=== PATIENT | female | born 1980 | race Two or more races ===

== ENCOUNTER 2022-03-22 13:13 | Emergency (ER) | payer MEDICARE, MEDICAID, OTHER | END 2022-03-22 14:09 | disposition left against medical advice (07) | LOC: ER 13:13 | DX: Z04.1 Encounter for examination and observation following transport accident (principal); Z53.21 Procedure and treatment not carried out due to patient leaving prior to being seen by health care provider; V89.2XXA Person injured in unspecified motor-vehicle accident, traffic, initial encounter; Y93.89 Activity, other specified; Y92.89 Other specified places as the place of occurrence of the external cause; Y99.8 Other external cause status ==

== ENCOUNTER 2023-05-20 18:33 | Emergency (ER) | payer MEDICARE, MEDICAID ==
[~2023-05-20] VITALS: Ht 167.6 cm; Wt 66.7 kg
[~2023-05-20 18:33] MED LIST: ACET-1080 PO; AZIT-81 PO; PROM1SOL4 PO
[2023-05-20 19:34] LABS: Basophils # (auto) 0.1 10 ^3/uL (0-0.2); Eosinophils # (auto) 0.1 10 ^3/uL (0-0.8); Eosinophils % (auto) 1.5 % (0.0-7.0); Hemoglobin 10.7 g/dL (12.2-16.2); Lymphocytes # (auto) 2.5 10 ^3/uL (0.4-5.4); Lymphocytes % (auto) 40.7 % (10.0-50.0); Mean Corpuscular Hemoglobin 23.9 pg (28.0-32.0); Mean Corpuscular Hgb Conc. 32.2 g/dL (32.0-36.0); Mean Corpuscular Volume 74.1 fL (80.0-100.0); Monocytes # (auto) 0.4 10 ^3/uL (0-1.3); Monocytes % (auto) 6.4 % (0.0-12.0); Neutrophils % (auto) 49.4 % (37.0-80.0); Red Blood Cells 4.46 10^6/uL (4.0-5.20); Red Cell Distribution Width 19.2 % (11.8-14.3); White Blood Cell 6.2 10^3/uL (4.4-10.8)
[2023-05-20 19:49] LABS: Albumin 4.6 g/dL (3.2-4.8); Alkaline Phosphatase 70 U/L (46-116); Aspartate Aminotransferase < 8 U/L (13-40); BUN/Creatinine Ratio 11.9 (10.0-20.0); Blood Urea Nitrogen 10 mg/dL (9-23); Calcium 9.3 mg/dL (8.7-10.4); Chloride 108 mmol/L (98-107); Glucose 104 mg/dL (74-106); Lipase 35 U/L (12-53); Potassium 3.9 mmol/L (3.5-5.1); Sodium 140 mmol/L (136-145)
[2023-05-20 19:50] LABS: Bilirubin, Total 0.2 mg/dL (0.2-1.0); Total Protein 7.5 g/dL (5.7-8.2)
[2023-05-20] MEDS ORDERED: IODIXANOL 320MG/ML 100ML BTL IV ONE (19:59)
[2023-05-20 20:12] LABS: Urine Bacteria NONE SEEN /hpf (None Seen); Urine Blood 3+ /uL (Negative); Urine Clarity Clear (Clear); Urine Color Yellow (Yellow); Urine Hyaline Cast FEW /lpf (0 - 2); Urine Mucus FEW (None Seen); Urine Protein, UAD TRACE (Negative); Urine Specific Gravity 1.025 (1.001-1.035); Urine Urobilinogen Normal (Negative); Urine WBC 3 /hpf (0 - 5); Urine pH 5.5 (5.0-8.0)
[2023-05-20 20:17] LABS: Alanine Aminotransferase < 9 U/L (7-40)
[2023-05-20 20:21] LABS: Amphetamine Screen, Urine Neg (NEGATIVE); Barbiturate Scree,Urine Neg (NEGATIVE); Benzodiazephine Screen, Urine Neg (NEGATIVE); Cocaine Screen, Urine Neg (NEGATIVE); Opiate Scree,Urine Neg (NEGATIVE)
[2023-05-20 20:22] LABS: Cannabinoid Screen, Urine Neg (NEGATIVE); Phencyclidine Screen, Urine Neg (NEGATIVE)
[2023-05-20 23:15] VITALS: BP 146/82; PULSE 82; RESP 18; TEMP 98.9; O2SAT 99
== END 2023-05-20 23:28 | disposition home or self-care (01) ==
LOC: ER 18:33
DX: K59.00 Constipation, unspecified (principal); R10.2 Pelvic and perineal pain; R10.33 Periumbilical pain; D64.9 Anemia, unspecified; Z79.1 Long term (current) use of non-steroidal anti-inflammatories (NSAID); Z79.899 Other long term (current) drug therapy
CPT/HCPCS: 36415; 71045; 74177; 80053; 80307; 81001; 81025; 83605; 83690; 84484; 84702; 85025; 99285; Q9967

== ENCOUNTER 2023-11-17 14:29 | Emergency (ER) | payer MEDICARE, MEDICAID ==
[~2023-11-17] VITALS: Ht 167.6 cm; Wt 67.7 kg
[2023-11-17 15:42] LABS: Urine Bacteria NONE SEEN /hpf (None Seen); Urine Blood 3+ /uL (Negative); Urine Clarity Clear (Clear); Urine Color Yellow (Yellow); Urine Mucus FEW (None Seen); Urine Protein, UAD 1+ (Negative); Urine Specific Gravity 1.019 (1.001-1.035); Urine Urobilinogen Normal (Negative); Urine WBC 41 /hpf (0 - 5); Urine pH 5.5 (5.0-8.0)
[2023-11-17 16:45] LABS: Basophils # (auto) 0 10 ^3/uL (0-0.2); Basophils % (auto) 0.4 % (0.0-2.0); Eosinophils # (auto) 0 10 ^3/uL (0-0.8); Hematocrit 40.2 % (36.0-46.0); Hemoglobin 13.1 g/dL (12.2-16.2); Lymphocytes # (auto) 1.1 10 ^3/uL (0.4-5.4); Lymphocytes % (auto) 13.2 % (10.0-50.0); Mean Corpuscular Hemoglobin 27.1 pg (28.0-32.0); Mean Corpuscular Hgb Conc. 32.5 g/dL (32.0-36.0); Mean Corpuscular Volume 83.4 fL (80.0-100.0); Monocytes # (auto) 0.3 10 ^3/uL (0-1.3); Monocytes % (auto) 3.2 % (0.0-12.0); Neutrophils # (auto) 6.9 10 ^3/uL (1.6-8.6); Neutrophils % (auto) 83.2 % (37.0-80.0); Red Blood Cells 4.82 10^6/uL (4.0-5.20); Red Cell Distribution Width 15.7 % (11.8-14.3); White Blood Cell 8.3 10^3/uL (4.4-10.8)
[2023-11-17 17:09] LABS: Alanine Aminotransferase 12 U/L (7-40); Albumin 4.7 g/dL (3.2-4.8); Alkaline Phosphatase 73 U/L (46-116); Anion Gap 6 (5-15); Aspartate Aminotransferase 15 U/L (13-40); BUN/Creatinine Ratio 10.3 (10.0-20.0); Bilirubin, Total 0.5 mg/dL (0.2-1.0); Blood Urea Nitrogen 10 mg/dL (9-23); Carbon Dioxide 25 mmol/L (20-30); Chloride 109 mmol/L (98-107); Glucose 108 mg/dL (74-106); Lipase 25 U/L (12-53); Potassium 4.5 mmol/L (3.5-5.1); Sodium 140 mmol/L (136-145)
[2023-11-17] MEDS ORDERED: ZOFR4T PO (19:03)
[2023-11-17] MEDS ORDERED: CEPH500C PO (19:03)
[2023-11-17] MEDS ORDERED: HYDR-4902 PO (19:03)
[2023-11-17 19:47] VITALS: TEMP 98.2
[2023-11-17] MEDS: SODIUM CHLORIDE 0.9% 1,000 ML IV ONE (19:55)
[2023-11-17 19:59] VITALS: PULSE 72; RESP 16; O2SAT 96
[2023-11-17] MEDS: ONDANSETRON HCL 4 MG/2 ML VIAL IV ONE (19:59)
[2023-11-17] MEDS: FAMOTIDINE (10MG/ML) 2ML VL IV ONE (19:59)
[2023-11-17] MEDS: MORPHINE SULFATE 4 MG/ML SYR/VIAL IV ONE (19:59)
[2023-11-17 21:29] VITALS: BP 122/90; PULSE 66; RESP 16; O2SAT 94
== END 2023-11-17 21:31 | disposition home or self-care (01) ==
LOC: ER 14:29
DX: N39.0 Urinary tract infection, site not specified (principal); R51.9 Headache, unspecified; K02.9 Dental caries, unspecified; R11.2 Nausea with vomiting, unspecified; Z32.02 Encounter for pregnancy test, result negative
CPT/HCPCS: 36415; 74176; 80053; 81001; 81025; 83690; 85025; 96361; 96374; 96375; 99285; J2270; J2405; J3490; J7030

== ENCOUNTER 2024-01-06 14:25 | Emergency (ER) | payer MEDICARE, MEDICAID ==
[~2024-01-06] VITALS: Ht 167.6 cm; Wt 66.9 kg
[~2024-01-06 14:25] MED LIST changes: +AZIT-185 PO; -AZIT-81 PO; +CEPH500C PO; +HYDR-4902 PO; +ZOFR4T PO
[2024-01-06] MEDS ORDERED: IBUP-1456 PO (18:39)
[2024-01-06 18:53] VITALS: BP 120/75; PULSE 75; RESP 12; TEMP 98; O2SAT 100
== END 2024-01-06 19:00 | disposition home or self-care (01) ==
LOC: ER 14:25
DX: S63.501A Unspecified sprain of right wrist, initial encounter (principal); W18.09XA Striking against other object with subsequent fall, initial encounter; Y93.89 Activity, other specified; Y92.89 Other specified places as the place of occurrence of the external cause; Y99.8 Other external cause status
CPT/HCPCS: 29125; 73110

== ENCOUNTER 2024-01-21 18:44 | Emergency (ER) | payer MEDICARE, MEDICAID ==
[~2024-01-21] VITALS: Ht 167.6 cm; Wt 63.6 kg
[~2024-01-21 18:44] MED LIST changes: +IBUP-1456 PO
[2024-01-21 23:56] VITALS: BP 99/69; PULSE 78; RESP 18; TEMP 97.8
[2024-01-22] MEDS ORDERED: ACET500T58 PO (02:40)
[2024-01-22] MEDS ORDERED: AMOX875T4 PO (02:40)
[2024-01-22 03:00] VITALS: O2SAT 100
[2024-01-22] MEDS: TETANUS-DIPTH-ACEL PERTUSSIS 0.5ML SYR Tdap IM ONE (03:57)
[2024-01-22] MEDS: cefTRIAXone SOD 1,000 MG VL IM ONE (03:58)
== END 2024-01-22 04:33 | disposition home or self-care (01) ==
LOC: ER 18:44
DX: S91.351A Open bite, right foot, initial encounter (principal); Z86.2 Personal history of diseases of the blood and blood-forming organs and certain disorders involving the immune mechanism; Z79.2 Long term (current) use of antibiotics; Z79.1 Long term (current) use of non-steroidal anti-inflammatories (NSAID); Z79.899 Other long term (current) drug therapy; W54.0XXA Bitten by dog, initial encounter; Y93.89 Activity, other specified; Y92.89 Other specified places as the place of occurrence of the external cause; Y99.8 Other external cause status
CPT/HCPCS: 90471; 90715; 96372; 99284; J0696

== ENCOUNTER 2024-12-25 22:59 | Emergency (ER) | payer MEDICARE, MEDICAID ==
[~2024-12-25] VITALS: Ht 170.2 cm; Wt 68.8 kg
[~2024-12-25 22:59] MED LIST changes: +ACET500T58 PO; +AMOX875T4 PO
[2024-12-25 23:10] VITALS: BP 119/86; TEMP 98.7
[2024-12-25] MEDS ORDERED: AUG875T PO (23:15)
[2024-12-25] MEDS ORDERED: METH4PAK PO (23:15)
--- NOTE | 2024-12-25 23:15 | ED.PDOC ---
Eye-HPI HPI Comments 44-year-old female presents to the ED chief complaint sore throat and bite lateral ear pain. Symptoms started a proximally 48 hours started with the right ear left ear now throat she notes right ear is worse than the left. States has been taking [id number] medications with little relief. Denies of the uterus does report chills fatigue notes no cough or nasal drainage. Denies chest pain, difficulty breathing, shortness of breath, nausea, vomiting or diarrhea notes no recent travel or ill contacts. Chief Complaint: Earache Time Seen by MD: 23:03 Primary Care Provider: CARLOS Reviewed Notes: Nurses Notes, Medications, Allergies Allergies: Coded Allergies: NO KNOWN ALLERGIES (Unverified , 09/15/22) Home Meds Active Scripts Acetaminophen (Acetaminophen) 500 Mg Tab, 500 MG PO Q4HR PRN, #30 TAB 0 Refills Prov:SANTIAGO FIELDS 01/22/24 Amoxicillin & Pot Clavulanate (Amoxicillin/Potassium Cla) 875 Mg Tab, 1 TAB PO BID for 7 Days, #14 TAB 0 Refills Prov:SANTIAGO FIELDS 01/22/24 Ibuprofen (Ibuprofen) 800 Mg Tab, 1 TAB PO TID PRN, #30 TAB 0 Refills Prov:SANTIAGO FIELDS 01/06/24 Hydrocodone-Acetaminophen (Hydrocodone Bitartrate/AC 5-325 mg) 1 Tab Tab, 1 TAB PO Q6HPRN PRN, #8 TAB as needed for nuasea vomiting Prov:PETRA LR Q DIRECTOR OF EDUCATION AND TRAINING 11/17/23 Ondansetron Odt 4MG Tab (ZOFRAN PO) 4 Mg Tb, 1 TAB PO Q8HPRN PRN, #10 TAB As needed for nausea vomitingODT TAB-DISSOLVE IN MOUTH, THEN SWALLOW Prov:PETRA LR Q DIRECTOR OF EDUCATION AND TRAINING 11/17/23 Cephalexin Monohydrate (Cephalexin) 500 Mg Cap, 1 CAP PO QID for 10 Days, #40 CAP Prov:AMITA LRA Q DIRECTOR OF EDUCATION AND TRAINING 24 Acetaminophen (Tylenol 8 Hour Arthritis) 650 Mg Tab, 650 MG PO TID, #20 TAB Prov:DOTTY DUBON 09/15/22 Promethazine-Dm (Promethazine Dm 6.25-15 mg/5Ml) 1 Nuria Nuria, 5 ML PO TID, #150 ML Prov:DOTTY DUBON 09/15/22 Azithromycin (ZITHROMAX TABLET) 250 Mg Tb, 250 MG PO DAILY, #6 TAB Prov:DOTTY DUBON 09/15/22 Past Medical History PAST MEDICAL HISTORY: Anemia Surgical History: Denies all surgeries SENIOR SALES DIRECTOR History: No Pertinent SENIOR SALES DIRECTOR History Family History Family History: Unknown Social History Smoker: Non-Smoker Alcohol: Denies ETOH Use Drugs: Denies Drug Use Lives In: Home Constitutional: reports: chills, fatigue; denies: diaphoresis, fever, malaise, sweats, weakness, others EENTM: reports: ear pain, throat pain; denies: blurred vision, double vision, ear bleeding, ear discharge, ear drainage, ear ringing, eye pain, eye redness, hearing loss, mouth pain, mouth swelling, nasal discharge, nose bleeding, nose congestion, nose pain, photophobia, tearing, throat swelling, voice changes, others Respiratory: denies: cough, hemoptysis, orthopnea, SOB at rest, shortness of breath, SOB with excertion, stridor, wheezing, others Cardiovascular: denies: chest pain, dizzy spells, diaphoresis, Dyspnea on exertion, edema, irregular heart beat, left arm pain, lightheadedness, palpitations, PND, syncope, others Gastrointestinal: denies: abdomen distended, abdominal pain, blood streaked bowels, constipated, diarrhea, dysphagia, difficulty swallowing, hematemesis, melena, nausea, poor appetite, poor fluid intake, rectal bleeding, rectal pain, vomiting, others Genitourinary: denies: abnormal vagina bleeding, burning, dyspareunia, dysuria, flank pain, frequency, hematuria, incontinence, pain, , vagina discharge, urgency, others Neurological: denies: dizziness, fainting, headache, left sided numbness, left sided weakness, numbness, paresthesia, pre-existing deficit, right sided numbness, right sided weakness, seizure, speech problems, tingling, tremors, weakness, others Musculoskeletal: denies: back pain, gout, joint pain, joint swelling, muscle pain, muscle stiffness, neck pain, others Integumetry: denies: bruises, change in color, change in hair/nails, dryness, laceration, lesions, lumps, rash, wounds, others Allergic/Immunocompromised: denies: Difficulty Healing, Frequent Infections, Hives, Itching, others Hematologic/Lymphatic: denies: anemia, blood clots, easy bleeding, easy bruising, swollen glands, others Endocrine: denies: excessive hunger, excessive sweating, excessive thirst, excessive urination, flushing, intolerance to cold, intolerance to heat, unexplained weight gain, unexplained weight loss, others Psychiatric: denies: anxiety, bipolar disorder, depression, hopeless, panic disorder, schizophrenia, sleepless, suicidal, others Physical Exam General Appearance: No Apparent Distress, Normal HEENT: Pharyngeal Erythema, TMs Normal, Other (Tonsils grade 3 without exudate) Neck: Full Range of Motion, Non-Tender Respiratory: Chest Non-Tender, Lungs Clear, No Accessory Muscle Use, No Respiratory Distress, Normal Breath Sounds Cardiovascular: No Edema, No JVD, No Murmur, No Gallop, Normal Peripheral Pulses, Regular Rate/Rhythm Breast Exam: Deferred Gastrointestinal: No Organomegaly, Non Tender, No Pulsatile Mass, Normal Bowel Sounds, Soft Genitalia: Deferred Pelvic: Deferred Rectal: Deferred Extremities: Normal capillary refill, Normal inspection, Normal range of motion, Non-tender, No pedal edema Musculoskeletal : Apperance: Normal Neurologic: Alert, clinical assistant II-XII nml as Tested, No Motor Deficits, Normal Affect, Normal Mood, No Sensory Deficits Cerebellar Function: Normal Reflexes: Normal Skin: Dry, Normal Color, Warm Lymphatic: No Adenopathy Was a procedure done? Was a procedure done?: No EENT DIFF Eye: N/A Ear: Foreign Body, Otitis Externa, Barotrauma, Otitis Media, Perforation, Dental, Pharyngitis Sore Throat: Peritonsillar Abscess, Peritonsillar Cellulitis, URI X-Ray, Labs, Meds, VS Comment Likely bacterial acute tonsillitis we will trial and script Augmentin and Medrol Dosepak patient's pharmacy on file. Advised to rest increase p.o. fluids with electrolytes. Take medications as prescribed side effects discussed. Follow up with your PCP in 2-3 days as necessary. ER return precautions given patient indicates understanding agrees with discharge plan of care Time of 1ST Reevaluation: 23:13 Reevaluation 1ST: Unchanged Patient Education/Counseling: Diagnosis, Treatment, Prognosis, Need For Follow Up Family Education/Counseling: No Family Present Departure 1 Departure Time of Disposition: 23:14 Impression: Primary Impression: Acute tonsillitis Disposition: HOME / SELF CARE / HOMELESS Condition: Stable e-Prescriptions Methylprednisolone (Medrol Dosepak) 4 Mg Aaron 4 MG PO UD for 6 Days, #21 TAB UAD Prov: LUIS UMANZOR 12/25/24 Amoxicillin & Pot Clavulanate (AUGMENTIN TABLET) 875 Mg Tb 875 MG PO BID for 7 Days, #14 TAB Prov: LUIS UMANZOR 12/25/24 Discharged With: Self Critical Care Note Critical Care Time?: No Stability Stability form required: LUIS Senior Dec 25, 2024 23:15
[2024-12-25 23:42] VITALS: PULSE 85; RESP 18; O2SAT 100
== END 2024-12-25 23:45 | disposition home or self-care (01) ==
LOC: ER 22:59
DX: J03.90 Acute tonsillitis, unspecified (principal)

== ENCOUNTER 2025-02-11 19:13 | Emergency (ER) | payer OTHER, MEDICAID ==
[~2025-02-11] VITALS: Ht 170.2 cm; Wt 69.1 kg
--- NOTE | 2025-02-11 20:08 | ED.PDOC ---
History of Present Illness HPI Comments 44-year-old female presents to ER with complaints of flu-like symptoms x2 days. Patient reports he has been experiencing dry cough, congestion and intermittent frontal headache x2 days. She rates her current frontal headache pain a 5/10 and denies use of medications for current symptoms. Patient presents to ER ambulatory on arrival, with steady gait, in no distress. Denies fever, shortness of breath, chest pain, hemoptysis, sore throat, dizziness or any further symptoms/complaints Time Seen by MD: 19:16 Primary Care Provider: UNKNOWN Reviewed Notes: Nurses Notes, Medications, Allergies Information Source: Patient Mode of Arrival: Ambulatory Past Medical History PAST MEDICAL HISTORY: Anemia Surgical History: Denies all surgeries ANIMATION DIRECTOR History: No Pertinent ANIMATION DIRECTOR History Family History Family History: Unknown Social History Smoker: Non-Smoker Alcohol: Denies ETOH Use Drugs: Denies Drug Use Lives In: Home Constitutional: No Symptoms Reported EENTM: See HPI Respiratory: See HPI Cardiovascular: No Symptoms Reported Gastrointestinal: No Symptoms Reported Genitourinary: No Symptoms Reported Neurological: See HPI Musculoskeletal: No Symptoms Reported Integumentary: No Symptoms Reported Allergic/Immunocompromised: others (DENIES) Hematologic/Lymphatic: No Symptoms Reported Endocrine: No Symptoms Reported Psychiatric: No symptoms Reported Physical Exam General Appearance: No Apparent Distress HEENT: Normal ENT Inspection, PERRL/EOMI, Pharynx Normal, TMs Normal Neck: Full Range of Motion, Non-Tender, Normal Respiratory: Chest Non-Tender, Lungs Clear, No Accessory Muscle Use, No Respiratory Distress, Normal Breath Sounds Cardiovascular: No Murmur, No Gallop, Regular Rate/Rhythm Breast Exam: Deferred Gastrointestinal: NOT DONE Genitalia: Deferred Pelvic: Deferred Rectal: Deferred Extremities: Normal capillary refill, Normal range of motion Neurologic: Alert, wrist liner II-XII nml as Tested, No Motor Deficits, Normal Affect, Normal Mood, No Sensory Deficits Cerebellar Function: Normal Reflexes: Normal Skin: Dry, Normal Color, Warm Lymphatic: No Adenopathy Was a procedure done? Was a procedure done?: No Sedation Sedation?: No Fever Differential Dx Differential Diagnosis: Pneumonia, Sepsis, Pharyngitis, Other (COVID-19, INFLUENZA) X-Ray, Labs, Meds, VS Vital Signs Date Time Temp Pulse Resp B/P (MAP) Pulse Ox O2 Delivery O2 Flow Rate FiO2 02/11/25 20:15 97.9 83 16 125/79 (94) 100 97.9 02/11/25 20:15 83 16 100 Room Air 02/11/25 19:59 97.9 83 16 125/79 (94) 100 97.9 Lab Test 02/11/25 20:00 Range/Units Influenza Type A Antigen Negative Negative Influenza Type B Antigen Negative Negative SARS-CoV-2 Antigen (Rapid) Negative NEGATIVE Swab results reviewed - negative Patient in no distress during ER visit/prior to discharge Advised to drink plenty of fluids Advised to follow up with PCP in 1-2 days Patient verbalized understanding and agreeable with current plan of care Advised to return to ER immediately if symptoms worsen Time of 1ST Reevaluation: 20:02 Reevaluation 1ST: N/A Patient Education/Counseling: Diagnosis, Treatment, Prognosis, Need For Follow Up Family Education/Counseling: No Family Present Departure 1 Departure Time of Disposition: 20:32 Impression: Primary Impression: Upper respiratory infection Qualified Codes: J06.9 - Acute upper respiratory infection, unspecified Disposition: 01 HOME / SELF CARE / HOMELESS Condition: Stable e-Prescriptions Acetaminophen (Acetaminophen) 500 Mg Tab 500 MG PO Q4HPRN, #30 TAB 0 Refills Prov: SANTIAGO FIELDS 02/11/25 Azithromycin (Azithromycin) 250 Mg Tab 250 MG PO DAILY MDD 500 for 5 Days, #6 TAB 0 Refills 2 TABLETS ORALLY ON DAY ONE, THEN 1 TABLET ORALLY DAILY FOR 4 DAYS Prov: SANTIAGO FIELDS 02/11/25 Discharged With: Self Critical Care Note Critical Care Time?: No Stability Stability form required: No Heart Score Heart Score: Heart Score Response (Comments) Value History N/A 0 EKG N/A 0 Age N/A 0 Risk Factors N/A 0 Troponin N/A 0 Total 0 SANTIAGO FIELDS February 11, 2025 20:08
[2025-02-11 20:15] VITALS: BP 125/79; PULSE 83; RESP 16; TEMP 97.9; O2SAT 100
[2025-02-11] MEDS ORDERED: ACET500T58 PO (20:33)
[2025-02-11] MEDS ORDERED: AZIT-43 PO (20:33)
[2025-02-11 20:49] LABS: COVID19 ANTIGEN SOFIA FIA NEGATIVE (NEGATIVE); Rapid Influenza A Negative (Negative); Rapid Influenza B Negative (Negative)
== END 2025-02-11 21:00 | disposition home or self-care (01) ==
LOC: ER 19:13
DX: J06.9 Acute upper respiratory infection, unspecified (principal); D64.9 Anemia, unspecified; Z20.822 Contact with and (suspected) exposure to COVID-19
CPT/HCPCS: 36415; 87426; 87804

== ENCOUNTER 2025-03-06 14:09 | Emergency (ER) | payer OTHER, MEDICAID ==
[~2025-03-06 14:09] MED LIST changes: +AZIT-43 PO
[2025-03-06 18:10] LABS: Urine Bacteria None Seen /hpf (None Seen)
[2025-03-06 18:26] LABS: Urine Blood Negative /uL (Negative); Urine Clarity Clear (Clear); Urine Color Light-Yellow (Yellow); Urine Mucus FEW (None Seen); Urine Protein, UAD Negative (Negative); Urine Specific Gravity 1.015 (1.001-1.035); Urine Squamous Epithelial Cell FEW /hpf (<5); Urine Urobilinogen Normal (Negative); Urine WBC 3 /HPF (0-5); Urine pH 5.5 (5.0-9.0)
[2025-03-06 18:46] LABS: Rapid Strep A Screen-Throat Negative
[2025-03-06] MEDS ORDERED: LORA-1130 PO ×3 (19:32→20:23)
[2025-03-06] MEDS ORDERED: MOME50SP11 ×2 (19:32→20:23)
--- NOTE | 2025-03-06 19:33 | ED.PDOC ---
History of Present Illness HPI Comments pt has been having recurrent sore throat, runny nose, post nasal discharge over weeks.no fever, no sob Chief Complaint: Flu like Time Seen by MD: 14:42 Primary Care Provider: UNKNOWN Allergies: Coded Allergies: NO KNOWN ALLERGIES (Unverified , 09/15/22) Home Meds Active Scripts Acetaminophen (Acetaminophen) 500 Mg Tab, 500 MG PO Q4HPRN, #30 TAB 0 Refills Prov:SANTIAGO FIELDS 02/11/25 Azithromycin (Azithromycin) 250 Mg Tab, 250 MG PO DAILY MDD 500 for 5 Days, #6 TAB 0 Refills 2 TABLETS ORALLY ON DAY ONE, THEN 1 TABLET ORALLY DAILY FOR 4 DAYS Prov:SANTIAGO FIELDS 02/11/25 Acetaminophen (Acetaminophen) 500 Mg Tab, 500 MG PO Q4HR PRN, #30 TAB 0 Refills Prov:SANTIAGO FIELDS 01/22/24 Amoxicillin & Pot Clavulanate (Amoxicillin/Potassium Cla) 875 Mg Tab, 1 TAB PO BID for 7 Days, #14 TAB 0 Refills Prov:SANTIAGO FIELDS 01/22/24 Ibuprofen (Ibuprofen) 800 Mg Tab, 1 TAB PO TID PRN, #30 TAB 0 Refills Prov:SANTIAGO FIELDS 01/06/24 Hydrocodone-Acetaminophen (Hydrocodone Bitartrate/AC 5-325 mg) 1 Tab Tab, 1 TAB PO Q6HPRN PRN, #8 TAB as needed for nuasea vomiting Prov:PETRA LR Q DRY CHARGE PROCESS ATTENDANT 11/17/23 Ondansetron Odt 4MG Tab (ZOFRAN PO) 4 Mg Tb, 1 TAB PO Q8HPRN PRN, #10 TAB As needed for nausea vomitingODT TAB-DISSOLVE IN MOUTH, THEN SWALLOW Prov:AMITA LRA Q DRY CHARGE PROCESS ATTENDANT 11/17/23 Cephalexin Monohydrate (Cephalexin) 500 Mg Cap, 1 CAP PO QID for 10 Days, #40 CAP Prov:AMITA LRA Q DRY CHARGE PROCESS ATTENDANT 11/17/23 Acetaminophen (Tylenol 8 Hour Arthritis) 650 Mg Tab, 650 MG PO TID, #20 TAB Prov:DOTTY DUBON 09/15/22 Promethazine-Dm (Promethazine Dm 6.25-15 mg/5Ml) 1 Nuria Nuria, 5 ML PO TID, #150 ML Prov:DOTTY DUBON 09/15/22 Azithromycin (ZITHROMAX TABLET) 250 Mg Tb, 250 MG PO DAILY, #6 TAB Prov:DOTTY DUBON 09/15/22 Information Source: Patient, Spouse Mode of Arrival: Ambulatory Severity: Mild Timing: Weeks Duration: Intermittent Past Medical History PAST MEDICAL HISTORY: Anemia Surgical History: Denies all surgeries BEAD FILLER History: No Pertinent BEAD FILLER History Family History Family History: Unknown Social History Smoker: Non-Smoker Alcohol: Denies ETOH Use Drugs: Denies Drug Use Lives In: Home Constitutional: denies: chills, diaphoresis, fatigue, fever, malaise, sweats, weakness, others EENTM: reports: nasal discharge, nose congestion, throat pain; denies: blurred vision, double vision, ear bleeding, ear discharge, ear drainage, ear pain, ear ringing, eye pain, eye redness, hearing loss, mouth pain, mouth swelling, nose bleeding, nose pain, photophobia, tearing, throat swelling, voice changes, others Respiratory: denies: cough, hemoptysis, orthopnea, SOB at rest, shortness of breath, SOB with excertion, stridor, wheezing, others Cardiovascular: denies: chest pain, dizzy spells, diaphoresis, Dyspnea on exertion, edema, irregular heart beat, left arm pain, lightheadedness, palpitations, PND, syncope, others Gastrointestinal: denies: abdomen distended, abdominal pain, blood streaked bowels, constipated, diarrhea, dysphagia, difficulty swallowing, hematemesis, melena, nausea, poor appetite, poor fluid intake, rectal bleeding, rectal pain, vomiting, others Genitourinary: denies: abnormal vagina bleeding, burning, dyspareunia, dysuria, flank pain, frequency, hematuria, incontinence, pain, , vagina discharge, urgency, others Neurological: denies: dizziness, fainting, headache, left sided numbness, left sided weakness, numbness, paresthesia, pre-existing deficit, right sided numbn ess, right sided weakness, seizure, speech problems, tingling, tremors, weakness, others Musculoskeletal: denies: back pain, gout, joint pain, joint swelling, muscle pain, muscle stiffness, neck pain, others Integumetry: denies: bruises, change in color, change in hair/nails, dryness, laceration, lesions, lumps, rash, wounds, others Allergic/Immunocompromised: denies: Difficulty Healing, Frequent Infections, Hives, Itching, others Hematologic/Lymphatic: denies: anemia, blood clots, easy bleeding, easy bruising, swollen glands, others Endocrine: denies: excessive hunger, excessive sweating, excessive thirst, excessive urination, flushing, intolerance to cold, intolerance to heat, unexplained weight gain, unexplained weight loss, others Psychiatric: denies: anxiety, bipolar disorder, depression, hopeless, panic disorder, schizophrenia, sleepless, suicidal, others All Other Systems: Reviewed and Negative Physical Exam General Appearance: No Apparent Distress, Normal HEENT: Normal ENT Inspection, Pharynx Normal, TM Abnormal (L) (retracted), TM Abnormal (R) (retracted), TMs Normal, Other (clear postnasal discharge) Neck: Full Range of Motion, Non-Tender, Normal, Normal Inspection Respiratory: Chest Non-Tender, Lungs Clear, No Accessory Muscle Use, No Respiratory Distress, Normal Breath Sounds Cardiovascular: No Edema, No JVD, No Murmur, No Gallop, Normal Peripheral Pulse s, Regular Rate/Rhythm Breast Exam: Deferred Gastrointestinal: No Organomegaly, Non Tender, No Pulsatile Mass, Normal Bowel Sounds, Soft Genitalia: Deferred Pelvic: Deferred Rectal: Deferred Extremities: No calf tenderness, Normal capillary refill, Normal inspection, Normal range of motion, Non-tender, No pedal edema Musculoskeletal : Apperance: Normal Neurologic: Alert, financial examiner II-XII nml as Tested, No Motor Deficits, Normal Affect, Normal Mood, No Sensory Deficits Cerebellar Function: Normal Reflexes: Normal Skin: Dry, Normal Color, Warm Lymphatic: No Adenopathy Was a procedure done? Was a procedure done?: No Differential Dx Considerations may include: strep tonsillitis, strep pharyngitis, mononucleosis, viral pharyngitis, peritonsillar abscess, post nasal drips, viral uri X-Ray, Labs, Meds, VS Vital Signs Date Time Temp Pulse Resp B/P (MAP) Pulse Ox O2 Delivery O2 Flow Rate FiO2 03/06/25 14:10 99.1 107 16 91/65 (74) 97 99.1 Lab Test 03/06/25 17:55 03/06/25 15:10 Range/Units Group A Streptococcus Rapid Negative Urine Color Light-yellow Yellow Urine Clarity Clear Clear Urine pH 5.5 5.0-9.0 Urine Specific Bureau 1.015 1.001-1.035 Urine Protein Negative Negative Urine Ketones 2+ H Negative Urine Blood Negative Negative /uL Urine Nitrite Negative Negative Urine Bilirubin Negative Negative Urine Urobilinogen Normal Negative mg/dL Urine Leukocyte Esterase Negative Negative /uL Urine RBC <1 0 - 4 /hpf Urine Microscopic WBC 3 0-5 /HPF Urine Squamous Epithelial Cells Few <5 /hpf Urine Bacteria None seen None Seen /hpf Urine Mucus Few None Seen Urine Glucose Normal Normal mg/dL Time of 1ST Reevaluation: 19:29 Reevaluation 1ST: Unchanged Patient Education/Counseling: Diagnosis, Treatment, Prognosis, Need For Follow Up Family Education/Counseling: Diagnosis, Treatment, Prognosis, Need For Follow Up Comments pt tests negative for strep and does not have any findings on exam to support strep infection. however, she does have postnasal drips, which is likely to cause prolonged throat discomfort. also the TMs are retracted, which is consistent with eustachian obstruction. her airway is clear, lungs are clear. i will treat her with nasal decongestant SEPSIS Sepsis Screen Date sepsis recognized/suspect: Mar 06, 2025 Time Sepsis recognized/suspect: 1430 Recent Procedure: No On Antibiotic Therapy: No Respiratory Rate >20: No Heart Rate >90: Yes Temp<36 C (96.8 F) or >38.3 C: No SBP <90 or MAP <65 mmHG: No New Acute Mental Status Change: No Is the patient on CPAP, BIPAP,: No Vital Signs Date Time Temp Pulse Resp B/P (MAP) Pulse Ox O2 Delivery O2 Flow Rate FiO2 03/06/25 14:10 99.1 107 16 91/65 (74) 97 99.1 Departure 1 Departure Time of Disposition: 19:31 Impression: Primary Impression: Postnasal drip Additional Impressions: Eustachian tube disorder Qualified Codes: H69.93 - Unspecified eustachian tube disorder, bilateral Viral URI Disposition: HOME / SELF CARE / HOMELESS Condition: Good e-Prescriptions Mometasone Furoate (Nasal) (Nasonex 24Hr) 50 Mcg/Act Spr 50 MCG NA DAILY, #1 SPRAY Prov: NICOLE WEISS MD 03/06/25 Loratadine & Pseudoephedrine (Claritin-D 24 Hour 10-240 mg) 1 Tab Tab 1 TAB PO DAILY for 10 Days, #10 TAB Prov: NICOLE WEISS MD 03/06/25 Discharged With: Self, Spouse Critical Care Note Critical Care Time?: No Stability Stability form required: No NICOLE WEISS MD Mar 06, 2025 19:33
[2025-03-06 20:10] VITALS: BP 97/67; PULSE 101; RESP 16; TEMP 99; O2SAT 98
== END 2025-03-06 20:26 | disposition home or self-care (01) ==
LOC: ER 14:09
DX: H69.93 Unspecified Eustachian tube disorder, bilateral (principal); J06.9 Acute upper respiratory infection, unspecified; B97.89 Other viral agents as the cause of diseases classified elsewhere; D46.9 Myelodysplastic syndrome, unspecified; Z79.899 Other long term (current) drug therapy
CPT/HCPCS: 81001; 87070; 87880